=== PATIENT | male | born 1960 | race Caucasian/White ===

== ENCOUNTER → 2018-10-23 12:45 | Outpatient (CLI) | payer OTHER, SELFPAY ==
[2018-10-23 14:24] LABS: Hematocrit 45.3 % (41-53); Hemoglobin 15.2 g/dL (13.5-17.5); Mean Corpuscular HGB Conc 33.5 % (30-36); Mean Corpuscular Hemoglobin 31.7 PG (26-34); Mean Corpuscular Volume 94.4 fL (80-100); Platelet Count 274 X10^3/uL (150-400); Red Blood Cell Count 4.79 X10^6/uL (4.5-5.9); Red Cell Distribution Width 12.3 % (11.6-14.8)
[2018-10-23 14:29] LABS: Alanine Aminotransferase 34 IU/L (21-72); Albumin 4.6 g/dL (3.5-5.0); Albumin Globulin Ratio 1.5 (1.0-2.8); Alkaline Phosphatase 100 U/L (38-126); Aspartate Aminotransferase 28 IU/L (17-59); BUN Creatinine Ratio 22.5 (6-22); Bilirubin Total 0.7 mg/dL (0.2-1.3); Blood Urea Nitrogen 18 mg/dL (9-20); C-Reactive Protein Quant 0.6 mg/dL (<1.0); Calcium 9.4 mg/dL (8.4-10.2); Carbon Dioxide 26 mmol/L (22-32); Chloride 102 mmol/L (98-107); Cholesterol 225 mg/dL (140-199); Estimated Glomerular Filt Rate > 60.0 mL/min (>60); Glucose 103 mg/dL (70-100); HDL Cholesterol 98 mg/dL (40-60); HEMOLYSIS < 15 (0-50); LDL Cholesterol Calculated 112 mg/dL (<100); Potassium 4.4 mmol/L (3.4-5.1); Sodium 139 mmol/L (137-145); Total Protein 7.6 g/dL (6.3-8.2); Triglycerides 76 mg/dL (35-150)
[2018-10-23 14:30] LABS: Rheumatoid Factor 12.2 IU/mL (<12.0)
[2018-10-23 14:56] LABS: Erythrocyte Sedimentation Rate 4 MM/HR (0-15)
[2018-10-25 20:06] LABS: ANA Pattern Nucleolar; ANA Screen, IFA Positive (Negative); ANA Titer 1:40 titer (<1:40)
== END ==
PROVIDERS: Visit Provider Nurse Practitioner Family
DX: Z00.00 Encounter for general adult medical examination without abnormal findings (principal); M25.40 Effusion, unspecified joint
CPT/HCPCS: 36415; 80053; 80061; 84550; 85027; 85651; 86038; 86140; 86430

== ENCOUNTER 2018-11-20 13:52 | Day surgery (SDC) | payer OTHER, SELFPAY ==
--- NOTE | 2018-11-20 | PATH_ITS ---
[facility] Accession Number: [id number] . 01 Material submitted: . colon - ASCENDING COLON SESSILE POLYP . 02 Diagnosis: Ascending Colon, Sessile Polyp, Biopsy: Tubular adenoma. [facility]/11/21/2018 . 02 Electronically signed: . Jake Pugh MD, PhD, Pathologist NPI- [id number] . 01 Gross description: . ASCENDING COLON SESSILE POLYP: Received in formalin are 2 fragment(s) of evangelista, soft tissue measuring 0.2 x 0.2 x 0.1 cm to 0.3 x 0.3 x 0.3 cm which is entirely submitted and submitted entirely in 1 cassette(s) /DMC /DMC . 02 Pathologist provided ICD-10: D12.2 . 02 CPT . 455555 Performed at: 01 [facility] [address] [id number] MD Roque Bartlett MD Phone: [phone] Performed at: 02 [facility] [place] [address] [place], [place] [id number] MD Mile Gutierrez MD Phone: [phone]
[2018-11-20 14:05] VITALS: BP 149/79; PULSE 74; RESP 14; TEMP 37.2; O2SAT 99; BMI 22.2
[2018-11-20] MEDS: SODIUM CHLORIDE 0.9% 1,000 ML 200 ML IV (14:24)
--- NOTE | 2018-11-20 14:46 | PM.HP.1 ---
History of Present Illness Date Patient Seen: 11/20/18 Time Patient Seen: 14:46 Chief complaint: [id number] Colonoscopy Patient History Social History household members: spouse Smoking Status: Current every day smoker (1/2 ppd) Tobacco: How many years used: 24 quit status: considering quitting (Patient given smoking cessation handout) second hand exposure: Yes alcohol intake: current (Beer, every day) substance use type: marijuana (smoke, a couple times a week) Family & Social History Social History: household members spouse Tobacco & Substance use: Smoking Status Current every day smoker alcohol intake current Meds Home Medications Medication Instructions Recorded Confirmed Type varicella-zoster glycoE [id number] 50 mcg IM ONCE #1 each 10/13/18 Rx adj(PF) 50 mcg/0.5 mL IM susp, kit Allergies Allergy/AdvReac Type Severity Reaction Status Date / Time shellfish derived Allergy Unknown Verified 11/20/18 14:18 [SHELLFISH DERIVED] Review of Systems Review of Systems All systems reviewed & are unremarkable except as noted in HPI and below Exam Vital Signs (past 8 hours): - 11/20/18 14:05 Temperature 98.9 F Pulse Rate 74 Respiratory Rate 14 Blood Pressure 149/79 H Pulse Oximetry 99 Oxygen Delivery Method Room Air Narrative Exam Narrative: Patient is alert and oriented Lungs are clear with no rales or wheezes Heart regular rhythm no murmur Abdomen soft and nontender Rectal will be done at time of colonoscopy Assessment & Plan Assessment & Plan narrative: Patient is here for screening colonoscopy is asymptomatic. He understands the procedure and agrees without further questions
--- NOTE | 2018-11-20 14:59 | P.HP_ITS ---
History of Present Illness Chief complaint: [id number] Colonoscopy Patient History Social History household members: spouse Smoking Status: Current every day smoker (1/2 ppd) Tobacco: How many years used: 24 quit status: considering quitting (Patient given smoking cessation handout) second hand exposure: Yes alcohol intake: current (Beer, every day) substance use type: marijuana (smoke, a couple times a week) Family & Social History Social History: household members spouse Tobacco & Substance use: Smoking Status Current every day smoker alcohol intake current Meds Home Medications Medication Instructions Recorded Confirmed Type varicella-zoster glycoE vacc-AS01B 50 mcg IM ONCE #1 each 10/13/18 Rx adj(PF) 50 mcg/0.5 mL IM susp, kit Allergies Allergy/AdvReac Type Severity Reaction Status Date / Time shellfish derived Allergy Unknown Verified 11/20/18 14:18 [SHELLFISH DERIVED] Review of Systems Review of Systems All systems reviewed & are unremarkable except as noted in HPI and below Exam Vital Signs (past 8 hours): - 11/20/18 14:05 Temperature 98.9 F Pulse Rate 74 Respiratory Rate 14 Blood Pressure 149/79 H Pulse Oximetry 99 Oxygen Delivery Method Room Air Narrative Exam Narrative: Patient is alert and oriented Lungs are clear Heart regular rhythm no murmur Abdomen soft and nontender no organomegaly Rectal will be done at colonoscopy Assessment & Plan Assessment & Plan narrative: Patient is here for a screening colonoscopy he is asymptomatic with no melena no hematochezia. He has had no previous colono scopies. I explained the nature of the procedure he understands and agrees with no further questions
[2018-11-20] MEDS: MIDAZOLAM 5 MG/5 ML VIAL IV (15:09)
[2018-11-20] MEDS: fentaNYL 250 MCG/5 ML INJ IV (15:10)
--- NOTE | 2018-11-20 15:22 | PM.OP.ENDO ---
Operative Date/Time/Diagnoses Date of procedure: 11/20/18 Time of procedure: 15:22 Pre-op diagnosis: Screening colonoscopy Post-op diagnosis: other Procedure & Clinicians Study performed: Total colonoscopy with biopsy sessile polyp ascending colon Same procedure as scheduled: Yes Indications: Screening Surgeon: Ten Gil Procedure Notes SCOAP/Timeout: Done Procedure in detail: Patient was properly identified during surgical pause. Flexible fiberoptic colonoscope inserted transanally to the cecum. Patient received a total of 5 mg of Versed and 200 micro g of fentanyl throughout the procedure. in the ascending colon there was a 5-8 mm flat sessile polyp which was removed with the cold forceps. This was photographed and is in the mid ascending colon. There was minimal bleeding with that. The entire procedure was very well tolerated. Scope withdrawal time: 8 minutes Sedation minutes: 19 Findings: polyp Specimen(s): other Complications: none Impression: Sessile polyp ascending colon Recommendations: Colonscopy in 3 years Follow up: as needed Disposition: PACU
[2018-11-20 15:25] VITALS: BP 114/69; PULSE 81; RESP 19; O2SAT 96
[2018-11-20 15:30] VITALS: BP 106/60; PULSE 78; RESP 14; O2SAT 95
[2018-11-20 15:33] VITALS: BP 122/68; PULSE 77; RESP 13; O2SAT 96
[2018-11-20 15:41] VITALS: BP 120/80; PULSE 76; RESP 14; TEMP 36.8; O2SAT 96
== END 2018-11-20 15:55 | disposition home or self-care (01) ==
PROVIDERS: PCP Nurse Practitioner Family; Visit Provider Surgery
PROC: 0DJD8ZZ Inspection of Lower Intestinal Tract, Via Natural or Artificial Opening Endoscopic (ICD-10-PCS; CPT 45378; principal; 2018-11-20 15:00)
DX: Z12.11 Encounter for screening for malignant neoplasm of colon (principal); F17.210 Nicotine dependence, cigarettes, uncomplicated; D12.2 Benign neoplasm of ascending colon
CPT/HCPCS: 45378; 45380; 99152; J2250; J3010

== ENCOUNTER → 2019-09-25 16:58 | Outpatient (CLI) | payer OTHER, SELFPAY ==
--- NOTE | 2019-09-25 | DI.MRI.S_ITS ---
PROCEDURE: MR KNEE RT WO CON INDICATIONS: Unspecified internal derangement of right knee TECHNIQUE: Noncontrast sagittal PD fast spin echo and T2 fast spin echo with fat saturation, sagittal 3-D FLASH with fat saturation; coronal T1 spin echo and PD fast spin echo with fat saturation, and axial PD fast spin echo with fat saturation through the knee. COMPARISON: [facility] [place], CR, XR KNEE ARTHRITIC SERIES RT, 09/14/2019, 8:25. FINDINGS: Image quality: Excellent. Menisci: Severely macerated medial meniscal tear involving the anterior horn posterior horn and body. There is near complete extrusion and multiple parameniscal cyst adjacent the posterior horn and body. Subtle undersurface nondisplaced tear involving the body of the lateral meniscus image 24/10. Cruciate ligaments: Anterior cruciate ligament appears intact. Posterior cruciate ligament appears intact. Medial structures: There is medial bowing of the medial collateral ligament, with mild internal signal changes and no complete rupture. There is adjacent soft tissue edema. The appearance could reflect reactive changes to medial compartment pathology, versus low-grade sprain of the MCL. Pes anserinus tendons appear grossly unremarkable. Semimembranosus tendon appears markedly thickened and T2 hyperintense. Lateral structures: The lateral collateral ligament intact although there is marked thickening and intrasubstance cystic change. Biceps femoris tendon appears intact. Popliteus tendon grossly unremarkable. Iliotibial band appears intact. Anterior structures: Quadriceps tendon intact. Medial and lateral patellofemoral ligaments intact. There is mild probably chronic patellar tendinopathy. Prepatellar and superficial infrapatellar subcutaneous edema/fluid. There is deep infrapatellar bursal fluid suggestive of bursitis. Bones and cartilage: No focal marrow contusion or discrete low signal fracture line. Within the medial compartment, near complete diffuse partial thickness loss of the femoral tibial articular cartilage without focal defect. Within the lateral compartment, low-grade surface fraying and intrasubstance signal change of central weight-bearing femoral and tibial articular cartilage. Within the patellofemoral compartment, Central fissuring and partial-thickness loss of the femoral trochlear cartilage. Joint space: Large joint effusion. Bryant's cyst measures approximately 5 cm in the cephalocaudad dimension. No specific evidence of intra-articular loose body. IMPRESSION: Severe macerated circumferential tear of the medial meniscus, with near complete extrusion. Associated subcentimeter multiple parameniscal cysts adjacent the posterior horn and body. Nondisplaced undersurface tear involving the body the lateral meniscus. Degenerative joint disease as above Bryant's cyst Severe semimembranosus insertional tendinopathy Chronic mild diffuse patellar tendinopathy Chronic sprain of the lateral collateral ligament, with intrasubstance cystic changes Large joint effusion Dictated by: Lalo Finnegan M.D. on 09/26/2019 at 9:02 Approved by: Lalo Finnegan M.D. on 09/26/2019 at 9:27
== END ==
PROVIDERS: PCP Nurse Practitioner Family; Referring Provider Orthopaedic Surgery Adult Reconstructive Orthopaedic Surgery; Visit Provider Orthopaedic Surgery Adult Reconstructive Orthopaedic Surgery
DX: S83.241A Other tear of medial meniscus, current injury, right knee, initial encounter (principal); S83.281A Other tear of lateral meniscus, current injury, right knee, initial encounter; S83.421A Sprain of lateral collateral ligament of right knee, initial encounter; M71.21 Synovial cyst of popliteal space [Baker], right knee; M25.461 Effusion, right knee
CPT/HCPCS: 73721

== ENCOUNTER → 2020-01-25 16:15 | Outpatient (CLI) | payer OTHER, SELFPAY ==
--- NOTE | 2020-01-25 16:16 | DI.RAD.S_ITS ---
PROCEDURE: XR HAND RT MIN 3V INDICATIONS: gout flare with red, warm 5th digit TECHNIQUE: 3 views of the hand(s) acquired. COMPARISON: None. FINDINGS: Bones: No acute fractures or dislocations. Normal bone mineralization without articular osteopenia. Mild degenerative changes involving the interphalangeal joints of the right thumb as well as the distal interphalangeal joints of the second and fourth fingers. Minimal degenerative changes of the proximal phalangeal joint of the right fifth finger. Mild degenerative changes at the first carpometacarpal joint. No suspicious osseous erosions. No abnormal periosteal reaction. Carpal bones are normally aligned. No suspicious bony lesions. Soft tissues: No suspicious soft tissue calcifications. Diffuse soft tissue swelling of the right third and fourth fingers with more focal dorsal soft tissue swelling centered at the fifth finger proximal interphalangeal joint. No underlying osseous abnormalities. IMPRESSION: Mild multilevel osteoarthrosis of the right hand without evidence for osseous erosions. Soft tissue swelling of the right third, fourth, and fifth fingers with more focal swelling at the proximal interphalangeal joint of the fifth finger. Dictated by: Salazar Alexis M.D. on 01/25/2020 at 16:52 Approved by: Salazar Alexis M.D. on 01/25/2020 at 16:56
== END ==
PROVIDERS: PCP Nurse Practitioner Family; Referring Provider Nurse Practitioner Family; Visit Provider Nurse Practitioner Family
DX: M10.9 Gout, unspecified (principal); M19.041 Primary osteoarthritis, right hand; M79.89 Other specified soft tissue disorders; M25.9 Joint disorder, unspecified; M25.40 Effusion, unspecified joint
CPT/HCPCS: 73130

== ENCOUNTER → 2022-01-01 12:49 | Outpatient (CLI) | payer OTHER, SELFPAY ==
[2022-01-01 14:08] LABS: Add Manual Diff / Slide Review NO; Basophils Absolute Auto 100 /uL (0-100); Basophils Percent Auto 0.7 % (0-2); Eosinophils Absolute Auto 200 /uL (0-450); Eosinophils Percent Auto 1.7 % (2-4); Hematocrit 42.4 % (41-53); Hemoglobin 14.7 g/dL (13.5-17.5); Lymphocytes Absolute Auto 2300 /uL (1100-4500); Lymphocytes Percent Auto 26.4 % (25-40); Mean Corpuscular HGB Conc 34.8 % (30-36); Mean Corpuscular Hemoglobin 32.6 PG (26-34); Mean Corpuscular Volume 93.8 fL (80-100); Monocytes Absolute Auto 600 /uL (0-900); Monocytes Percent Auto 6.7 % (3-14); Neutrophils Absolute Auto 5700 /uL (1500-7000); Neutrophils Percent Auto 64.5 % (50-75); Platelet Count 322 X10^3/uL (150-400); Red Blood Cell Count 4.52 X10^6/uL (4.5-5.9); Red Cell Distribution Width 12.5 % (11.6-14.8); White Blood Cell Count 8.8 X10^3/uL (4.5-11.0)
[2022-01-02 04:18] LABS: HEMOLYSIS < 15 (0-50)
[2022-01-02 04:24] LABS: Alanine Aminotransferase 26 IU/L (<50); Albumin 4.4 g/dL (3.5-5.0); Albumin Globulin Ratio 1.3 (1.0-2.8); Alkaline Phosphatase 105 U/L (38-126); Aspartate Aminotransferase 33 IU/L (17-59); BUN Creatinine Ratio 18.9 (6-22); Bilirubin Total 0.6 mg/dL (0.2-1.3); Blood Urea Nitrogen 14 mg/dL (9-20); Calcium 9.2 mg/dL (8.4-10.2); Carbon Dioxide 25 mmol/L (22-32); Chloride 105 mmol/L (98-107); Cholesterol 226 mg/dL (140-199); Estimated Glomerular Filt Rate > 60 mL/min (>60); Globulin 3.3 g/dL (1.7-4.1); Glucose 95 mg/dL (80-110); HDL Cholesterol 103 mg/dL (40-60); LDL Cholesterol Calculated 107 mg/dL (<100); Potassium 4.1 mmol/L (3.4-5.1); Sodium 138 mmol/L (137-145); Total Protein 7.7 g/dL (6.3-8.2); Triglycerides 78 mg/dL (35-150); Uric Acid 8.3 mg/dL (3.5-8.5)
[2022-01-02 04:54] LABS: Thyroid Stimulating Hormone 5.13 uIU/mL (0.47-4.68)
[2022-01-03 14:55] LABS: Free T3, Triiodothyronine Free 3.34 pg/mL (2.77-5.27); Free T4, Direct Thyroxine 0.96 ng/dL (0.78-2.19)
[2022-01-03 15:32] LABS: Rheumatoid Factor < 8.6 IU/mL (<12.0)
[2022-01-03 16:00] LABS: Prostate Specific Antigen 1.61 ng/mL (0.10-4.00)
[2022-01-04 21:50] LABS: CCP Antibodies IgG/IgA 5 units (0-19)
[2022-01-05 16:18] LABS: ANA Screen, IFA Negative (.)
== END ==
PROVIDERS: PCP Family Medicine; Referring Provider Family Medicine; Visit Provider Family Medicine
DX: M10.9 Gout, unspecified (principal); M25.40 Effusion, unspecified joint; M25.9 Joint disorder, unspecified; R76.8 Other specified abnormal immunological findings in serum
CPT/HCPCS: 36415; 80053; 80061; 84153; 84439; 84443; 84481; 84550; 85025; 86038; 86200; 86430

== ENCOUNTER → 2022-03-25 09:10 | Outpatient (CLI) | payer OTHER, SELFPAY ==
[2022-03-25 11:30] LABS: COVID19 -Nasal RAPID Negative (Negative)
== END ==
PROVIDERS: PCP Family Medicine; Visit Provider Surgery
DX: Z01.812 Encounter for preprocedural laboratory examination (principal); Z20.822 Contact with and (suspected) exposure to COVID-19
CPT/HCPCS: 87635; C9803

== ENCOUNTER 2022-03-26 06:29 | Day surgery (SDC) | payer OTHER, SELFPAY ==
[2022-03-26] MEDS: LACTATED RINGERS 1,000 ML 84 ML IV (06:41)
[2022-03-26 06:48] VITALS: BP 158/85; PULSE 94; RESP 16; TEMP 36.2; O2SAT 99; BMI 22.7
--- NOTE | 2022-03-26 07:41 | PM.HP.1 ---
History of Present Illness History of Present Illness Date Patient Seen: 03/26/22 Time Patient Seen: 07:41 Chief complaint: Colonoscopy Narrative: h/o polyps. Last scope was 3 years ago where they found a funny looking polyp. This is his 3rd scope. Patient History Medical History (Updated 02/03/22 @ 08:17 by Juan Carlos Salguero DO) Acne SHREYA positive Ankle pain (~2001) Arthralgia Asthma (~1966) Cellulitis Chronic diarrhea Foot pain (~2001) Gout (~2001) Hearing loss Hypothyroidism (acquired) Redness of joint Rheumatoid factor positive Rosacea (~2003) Seasonal allergies (~1966) Sessile colonic polyp Shoulder pain (~2011) Vision disorder Surgical History (Updated 12/01/18 @ 13:35 by Elyse Garcia) Anesthesia History of tonsillectomy (~1963) Surgical procedure planned (~2017) Family & Social History Family History (Updated 12/01/18 @ 13:38 by Elyse Garcia) Mother Cancer History of heart disease Stroke Sister Cancer Grandmother Cancer History of heart disease Grandfather Diabetes mellitus Grandmother No problems noted. Social History: household members spouse Tobacco & Substance use: Tobacco type cigarettes Smoking Status Current every day smoker alcohol intake current alcohol intake frequency 0-2 drinks per day Substance Use Type marijuana Meds Home Medications and Allergies Home Medications Medication Instructions Recorded Confirmed Type ibuprofen 200 mg tablet (Advil) 600 mg PO BID PRN 12/06/18 01/25/20 History allopurinol 100 mg tablet 100 mg PO DAILY PRN Gout 02/03/22 History levothyroxine 25 mcg tablet 25 mcg PO DAILY #90 tabs 02/03/22 03/26/22 Rx Allergies Allergy/AdvReac Type Severity Reaction Status Date / Time hornet venom Allergy Severe Anaphylaxis Verified 03/26/22 06:42 naproxen Allergy Severe Anaphylaxis Verified 03/26/22 06:42 shellfish derived Allergy Unknown Verified 03/26/22 06:42 [SHELLFISH DERIVED] Review of Systems Review of Systems ROS: Yes All systems reviewed with the patient and are negative except as otherwise documented Exam Vital Signs (past 8 hours): - 03/26/22 06:48 Temperature 97.2 F L Pulse Rate 94 H Respiratory Rate 16 Blood Pressure 158/85 H Pulse Oximetry 99 Oxygen Delivery Method Room Air Oxygen Delivery Method Room Air Const General: cooperative and healthy appearing Nutritional Appearance: average body habitus Orientation: alert, awake and oriented x3 HENMT Head: normal to inspection, normocephalic and atraumatic Eyes Sclera: sclerae normal Neck Neck: trachea midline Chest Chest: normal inspection of the chest Resp Effort & Inspection: normal respiratory effort and able to speak in complete sentences Cardio Rate: regular rate Rhythm: regular rhythm GI Inspection: normal to inspection Palpation: soft Skin General: no rashes or lesions noted Neuro General: patient alert, patient awake and patient oriented x3 Cognition: normal cognition Extrem General: normal to inspection and full ROM Psych Appearance: grossly normal Judgment: judgment good Objective ECG Impression: h/o colon polyp Plan: colonoscopy with sedation Assessment & Plan Time Spent With Patient Critical Care time: I spent a total of [] minutes of critical care time on this patient's care today; this time is exclusive of procedural time.
[2022-03-26] MEDS: ONDANSETRON 4 MG/2 ML INJ IV (08:02)
[2022-03-26] MEDS: MIDAZOLAM 5 MG/5 ML VIAL 7 MG IV (08:02)
[2022-03-26] MEDS: fentaNYL 100 MCG/2 ML INJ 175 MCG IV (08:02)
--- NOTE | 2022-03-26 08:16 | P.OP.COLON_ITS ---
Operative Date/Time/Diagnoses Date of procedure: 03/26/22 Time of procedure: 08:16 Pre-op diagnosis: History of colon polyps Post-op diagnosis: same Procedure & Clinicians Study performed: Colonoscopy with moderate sedation Same procedure as scheduled: Yes Indications: History of colon polyps Surgeon: Gemma Eddy Procedure Notes Procedure in detail: Preop diagnosis: History of colon polyps Postop diagnosis: Same Operative procedure: Colonoscopy with moderate sedation Surgeon: Norah Eddy MD Anesthetic: Versed 7 mg fentanyl 175 mcg Findings: No polyps, no diverticulosis. Procedure: Patient placed in a lateral position. Rectal exam performed showing normal tone no masses. Colonoscope inserted into the rectum and advanced to the ileocecal valve with minimal difficulty. Insufflation and extraction of the scope and the above findings. Retroflex was included in the rectum. Impression: Normal colonoscopy. No polyps identified. Plan: Repeat colonoscopy in 5 years unless otherwise indicated by change in [facility] history or clinical condition Sedation minutes: 17 Specimen(s): none sent Complications: none Impression: Normal colonoscopy. No polyps identified, no diverticulosis. Post-procedure Recommendations: Colonoscopy in 5 years Follow up: as needed Disposition: PACU
[2022-03-26 08:20] VITALS: BP 100/77; PULSE 75; RESP 14; TEMP 36.4; O2SAT 95
[2022-03-26 08:25] VITALS: BP 108/74; PULSE 81; RESP 16; TEMP 36.5; O2SAT 95
[2022-03-26 08:30] VITALS: BP 102/66; PULSE 72; RESP 16; TEMP 36.5; O2SAT 95
[2022-03-26 08:45] VITALS: BP 113/65; PULSE 72; RESP 16; TEMP 36.6; O2SAT 96
[2022-03-26 08:52] VITALS: BP 112/67; PULSE 72; RESP 16; TEMP 36.5; O2SAT 97
== END 2022-03-26 08:55 | disposition home or self-care (01) ==
PROVIDERS: PCP Family Medicine; Referring Provider Surgery; Visit Provider Surgery
PROC: 0DJD8ZZ Inspection of Lower Intestinal Tract, Via Natural or Artificial Opening Endoscopic (ICD-10-PCS; CPT 45378; principal; 2022-03-26 07:45)
DX: Z12.11 Encounter for screening for malignant neoplasm of colon (principal); Z86.010 Personal history of colon polyps
CPT/HCPCS: 45378; 99152; J2250; J2405; J3010

== ENCOUNTER → 2022-04-06 15:12 | Outpatient (CLI) | payer OTHER, SELFPAY ==
[2022-04-06 17:29] LABS: Free T3, Triiodothyronine Free 4.69 pg/mL (2.77-5.27)
[2022-04-06 17:42] LABS: Thyroid Stimulating Hormone 8.24 uIU/mL (0.47-4.68)
== END ==
PROVIDERS: PCP Family Medicine; Referring Provider Family Medicine; Visit Provider Family Medicine
DX: E03.9 Hypothyroidism, unspecified (principal)
CPT/HCPCS: 36415; 84439; 84443; 84481

== ENCOUNTER → 2024-04-09 09:37 | Outpatient (CLI) | payer OTHER, SELFPAY ==
[2024-04-09 10:34] LABS: Add Manual Diff / Slide Review NO; Basophils Absolute Auto 100 /uL (0-100); Basophils Percent Auto 0.8 % (0-2); Eosinophils Absolute Auto 300 /uL (0-450); Eosinophils Percent Auto 2.5 % (2-4); Hemoglobin 15.5 g/dL (13.5-17.5); Lymphocytes Absolute Auto 2200 /uL (1100-4500); Lymphocytes Percent Auto 22.3 % (25-40); Mean Corpuscular HGB Conc 34.5 % (30-36); Mean Corpuscular Hemoglobin 32.9 PG (26-34); Mean Corpuscular Volume 95.3 fL (80-100); Monocytes Absolute Auto 1000 /uL (0-900); Monocytes Percent Auto 9.6 % (3-14); Neutrophils Absolute Auto 6500 /uL (1500-7000); Neutrophils Percent Auto 64.8 % (50-75); Platelet Count 266 X10^3/uL (150-400); Red Blood Cell Count 4.72 X10^6/uL (4.5-5.9); Red Cell Distribution Width 12.3 % (11.6-14.8)
[2024-04-09 10:51] LABS: Alanine Aminotransferase 46 IU/L (<50); Albumin 4.4 g/dL (3.5-5.0); Albumin Globulin Ratio 1.6 (1.0-2.8); Alkaline Phosphatase 113 U/L (38-126); Aspartate Aminotransferase 35 IU/L (17-59); BUN Creatinine Ratio 14.1 (6-22); Bilirubin Total 0.6 mg/dL (0.2-1.3); Blood Urea Nitrogen 11 mg/dL (9-20); Calcium 9.8 mg/dL (8.4-10.2); Carbon Dioxide 24 mmol/L (22-32); Chloride 106 mmol/L (98-107); Cholesterol 258 mg/dL (140-199); Estimated Glomerular Filt Rate > 60 mL/min (>60); Globulin 2.8 g/dL (1.7-4.1); Glucose 109 mg/dL (80-110); HEMOLYSIS < 15 (0-50); Sodium 138 mmol/L (137-145); Total Protein 7.2 g/dL (6.3-8.2); Triglycerides 137 mg/dL (35-150)
[2024-04-09 10:59] LABS: HDL Cholesterol 107 mg/dL (40-60); LDL Cholesterol Calculated 124 mg/dL (<100)
[2024-04-09 11:21] LABS: Prostate Specific Antigen Scrn 2.36 ng/mL (0.1-4.0)
[2024-04-09 11:28] LABS: TSH w/ Reflex to FT4 5.29 uIU/mL (0.47-4.68)
[2024-04-09 12:06] LABS: Free T4, Direct Thyroxine 0.74 ng/dL (0.78-2.19)
== END ==
PROVIDERS: PCP Family Medicine; Referring Provider Family Medicine; Visit Provider Family Medicine
DX: E03.9 Hypothyroidism, unspecified (principal); K52.9 Noninfective gastroenteritis and colitis, unspecified; M10.9 Gout, unspecified; Z12.5 Encounter for screening for malignant neoplasm of prostate; Z13.220 Encounter for screening for lipoid disorders
CPT/HCPCS: 36415; 80053; 80061; 84439; 84443; 85025; G0103

== ENCOUNTER → 2024-07-03 09:12 | Outpatient (CLI) | payer OTHER, SELFPAY ==
[2024-07-03 11:04] LABS: TSH w/ Reflex to FT4 2.62 uIU/mL (0.47-4.68)
== END ==
PROVIDERS: PCP Family Medicine; Referring Provider Family Medicine; Visit Provider Family Medicine
DX: E03.9 Hypothyroidism, unspecified (principal)
CPT/HCPCS: 36415; 84443

== ENCOUNTER → 2025-05-10 09:00 | Outpatient (CLI) | payer MEDICARE, SELFPAY ==
[2025-05-10 09:34] LABS: Add Manual Diff / Slide Review NO; Hematocrit 43.3 % (41-53); Hemoglobin 15.0 g/dL (13.5-17.5); Lymphocytes Absolute Auto 2300 /uL (1100-4500); Mean Corpuscular HGB Conc 34.6 % (30-36); Mean Corpuscular Hemoglobin 32.2 PG (26-34); Mean Corpuscular Volume 92.8 fL (80-100); Platelet Count 230 X10^3/uL (150-400)
[2025-05-10 09:56] LABS: Alanine Aminotransferase 46 IU/L (<50); Albumin 4.2 g/dL (3.5-5.0); Albumin Globulin Ratio 1.6 (1.0-2.8); Alkaline Phosphatase 104 U/L (38-126); Blood Urea Nitrogen 15 mg/dL (9-20); Calcium 9.0 mg/dL (8.4-10.2); Carbon Dioxide 24 mmol/L (22-32); Chloride 105 mmol/L (98-107); Cholesterol 263 mg/dL (140-199); Estimated Glomerular Filt Rate > 60 mL/min (>60); Globulin 2.7 g/dL (1.7-4.1); Glucose 113 mg/dL (70-99); HDL Cholesterol 109 mg/dL (40-60); HEMOLYSIS < 15 (0-50); Potassium 4.3 mmol/L (3.4-5.1); Sodium 136 mmol/L (137-145); Total Protein 6.9 g/dL (6.3-8.2); Triglycerides 135 mg/dL (35-150)
[2025-05-10 10:26] LABS: TSH w/ Reflex to FT4 3.72 uIU/mL (0.47-4.68)
== END ==
PROVIDERS: PCP Family Medicine; Referring Provider Family Medicine; Visit Provider Family Medicine
DX: E03.9 Hypothyroidism, unspecified (principal); Z12.5 Encounter for screening for malignant neoplasm of prostate; E78.5 Hyperlipidemia, unspecified
CPT/HCPCS: 36415; 80053; 80061; 84443; 85025; G0103